=== PATIENT | female | born 1975 | race African-American/Black ===

== ENCOUNTER 2019-02-02 10:19 | Inpatient (IN) | payer OTHER ==
[2019-02-02 11:30] VITALS: BMI 36.6
[2019-02-02] MEDS ORDERED: EPINEPHrine/PF 1 MG/1 ML (1:1,000) AMPULE ONE (11:32)
[2019-02-02] MEDS ORDERED: DEXAMETHASONE SOD PHOSPHATE/PF 10 MG/ML SDV ONE (11:32)
[2019-02-02] MEDS ORDERED: MIDAZOLAM HCL 2 MG/2 ML SINGLE DOSE VIAL ONE ×7 (11:33→16:03)
[2019-02-02] MEDS ORDERED: ROPIVACAINE HCL 0.5% 30ML VIAL ONE (11:33)
[2019-02-02] MEDS ORDERED: BUPIVACAINE HCL/PF 0.5% (5MG/ML) 10 ML VIAL ONE (13:28)
[2019-02-02] MEDS ORDERED: ceFAZolin SODIUM 1 GM VIAL ONE ×2 (13:31→16:11)
[2019-02-02] MEDS ORDERED: VANCOMYCIN 1,000 MG VIAL (RESTRICTED TO ID ONLY) ONE (13:31)
[2019-02-02] MEDS ORDERED: TRANEXAMIC ACID 1000 MG/10 ML VIAL ONE ×2 (13:31→16:19)
[2019-02-02] MEDS ORDERED: CEFAZOLIN 2 GM/D5W 2 GM/50 ML ML IVPB ONE (13:36)
[2019-02-02] MEDS ORDERED: TRANEXAMIC ACID 1000 MG/10 ML VIAL IVPUSH ONE (13:36)
[2019-02-02] MEDS ORDERED: VANCOMYCIN 1 GRAM (PRE-DOCKED) 1,000 MG/250 ML BAG IVPB ONE (13:36)
--- NOTE | 2019-02-02 13:54 | PN ---
Progress Note (short form) - Note Progress Note: 43M s/p RIGHT total hip replacement POD #0. -Pain control: per anaesthesia team. -DVT PPx: -Chemical: ASA 81mg PO BID x 6 weeks. -Mechanical: JOSÉ's, SCD's. -Incentive spirometry q15 min. -PT/OT/Rehab, OOB. -WBAT RLE. -Post-op Ancef x 3 doses. -f/u post-op TOV: 8 hours max. -f/u AM labs. -Diet as tolerated. -Care per medical hospitalist team. -Discharge planning: f/u [facility] [place] [facility] 02/10/2019; call for appointment . -Will follow. Darren Alfaro MD (Orthopaedic Surgery).
--- NOTE | 2019-02-02 13:56 | OP ---
Operative Note - Note: Operative Date: 02/02/19 Pre-Operative Diagnosis: Right hip traumatic arthropathy Operation: Right total hip replacement Implants: [place]. Cup - Trident II-Tritanium, 48mm. Poly - 32mm, neutral. Stem - Accolade II, #3, 127 deg NSA. Head - 32mm diameter, -4mm length Biolox/ Delta Ceramic Post-Operative Diagnosis: Same as Pre-op Surgeon: Darren Alfaro Compensation Associate: Darius Alfaro Anesthesiologist/ORDER WORKER: Kyle Espinoza Anesthesia: Spinal Specimens Removed: Right femoral head Estimated Blood Loss (mls): 200 Fluid Volume Replaced (mls): 1,500 (Crystalloid) Operative Report Dictated: Yes
[2019-02-02] MEDS ORDERED: ePHEDrine SULFATE 50 MG/1 ML AMPULE ONE (14:19)
[2019-02-02] MEDS ORDERED: PHENYLEPHRINE HCL 10 MG/1 ML SINGLE DOSE VIAL ONE (14:19)
[2019-02-02] MEDS ORDERED: SODIUM CHLORIDE 0.9% P/F 10 ML VIAL IJ ONE (14:30)
[2019-02-02] MEDS ORDERED: ONDANSETRON 4 MG/2 ML VIAL IVPUSH PRN ×2 (16:39→17:42)
[2019-02-02] MEDS ORDERED: MAGNESIUM HYDROX 2400MG/30ML ORAL SUSPENSION 30 ML CUP PO PRN (16:39)
[2019-02-02] MEDS ORDERED: MAG HYDROX/AL HYDROX/SIMETH 30 ML UNIT-DOSE CUP PO PRN (16:39)
[2019-02-02] MEDS ORDERED: DEXAMETHASONE SOD PHOSPHATE 4 MG/1 ML VIAL ONE (16:45)
[2019-02-02] MEDS ORDERED: ONDANSETRON 4 MG/2 ML VIAL ONE ×2 (16:45→17:55)
[2019-02-02] MEDS ORDERED: LACTATED RINGERS SOLUTION 1,000 ML IV SCH (16:45)
[2019-02-02] MEDS ORDERED: HYDROmorphone HCL/PF 1 MG/ML AMP ONE (16:45)
[2019-02-02] MEDS ORDERED: PROMETHAZINE HCL 25 MG/1 ML VIAL IVPUSH PRN (17:42)
[2019-02-02] MEDS ORDERED: oxyCODONE HCL 5 MG TABLET PO PRN (17:42)
[2019-02-02] MEDS ORDERED: ACETAMINOPHEN 325 MG TABLET (FP) ONE (17:53)
[2019-02-02] MEDS: ACETAMINOPHEN 325 MG TABLET (FP) PO SCH ×2 (17:54→23:56)
[2019-02-02] MEDS: oxyCODONE HCL 5 MG TABLET PO PRN ×2 (18:54→20:13)
--- NOTE | 2019-02-02 19:27 | CONSULT ---
Consult Consult Specialty:: IM Reason for Consultation:: post-op medical management - History Source History Provided By: Patient Limitations to Obtaining History: No Limitations - Past Medical History ...LMP: 01/16/19 ...: No - Alcohol/Substance Use Hx Alcohol Use: Yes (SOCIALLY) - Smoking History Smoking history: Never smoked Have you smoked in the past 12 months: No Home Medications - Allergies Allergies/Adverse Reactions: Allergies Allergy/AdvReac Type Severity Reaction Status Date / Time No Known Drug Allergies Allergy Verified 02/02/19 11:11 - Home Medications Home Medications: Ambulatory Orders NK [No Known Home Medication] 01/24/19 Family Disease History - Family Disease History Family History: Unremarkable Review of Systems - Review of Systems Constitutional: reports: No Symptoms Eyes: reports: No Symptoms HENT: reports: No Symptoms Neck: reports: No Symptoms Cardiovascular: reports: No Symptoms Respiratory: reports: No Symptoms Gastrointestinal: reports: No Symptoms Genitourinary: reports: No Symptoms Musculoskeletal: reports: No Symptoms, Joint Pain, Joint Swelling Integumentary: reports: No Symptoms Neurological: reports: No Symptoms Endocrine: reports: No Symptoms Hematology/Lymphatic: reports: No Symptoms Psychiatric: reports: No Symptoms Pain Intensity: 6 Physical Exam Vital Signs: Vital Signs Temperature 98 F 02/02/19 18:38 Pulse Rate 74 02/02/19 18:38 Respiratory Rate 18 02/02/19 18:38 Blood Pressure 122/70 02/02/19 18:38 O2 Sat by Pulse Oximetry (%) 95 02/02/19 18:38 Constitutional: Yes: Well Nourished, No Distress Eyes: Yes: WNL HENT: Yes: WNL Neck: Yes: WNL Cardiovascular: Yes: WNL Respiratory: Yes: WNL Gastrointestinal: Yes: WNL Renal/: Yes: WNL Musculoskeletal: Yes: Joint Stiffness Extremities: Yes: WNL Edema: No Peripheral Pulses WNL: Yes Integumentary: Yes: WNL Wound/Incision: Yes: Clean/Dry, Well Approximated Neurological: Yes: WNL ...Motor Strength: WNL Psychiatric: Yes: WNL Assessment/Plan 43 yo female S/P Right total hip replacement POD #0 cont pain management. incentive spirometry. stool softeners to avoid opioid induced constipation. -GI, DVTprophylaxis. -PT/OT/OOB as tolerated -ID: Cefazolin and vanco given karoline-operatively -oral diet -assessment and plan discussed with pt and staff meds and labs reviewed AM labs ordered will f/u in AM
[2019-02-02] MEDS: CEFAZOLIN 2 GM/D5W 2 GM/50 ML ML IVPB SCH (20:14)
[2019-02-02] MEDS: ASPIRIN COATED 81 MG TABLET.EC PO SCH (22:33)
[2019-02-02] MEDS: oxyCODONE HCL 10 MG SUSTAINED ACTING TABLET PO SCH (22:33)
[2019-02-02] MEDS: SENNOSIDES/DOCUSATE COMBO (SENNA PLUS) TABLET (UD) PO SCH (22:33)
[2019-02-03] MEDS: CEFAZOLIN 2 GM/D5W 2 GM/50 ML ML IVPB SCH ×2 (02:34→09:55)
[2019-02-03] MEDS: ACETAMINOPHEN 325 MG TABLET (FP) PO SCH ×3 (06:06→17:22)
[2019-02-03] MEDS: oxyCODONE HCL 5 MG TABLET PO PRN ×3 (06:06→20:13)
[2019-02-03 08:02] LABS: HEMATOCRIT 34.6 % (32.4-45.2); HEMOGLOBIN 11.5 GM/dl (10.7-15.3); MCH 30.4 pg (25.7-33.7); MCHC 33.3 g/dl (32.0-36.0); MEAN CELL VOLUME 91.3 fl (80-96); MEAN PLT VOLUME 9.9 fl (7.5-11.1); PLATELET COUNT 242 K/MM3 (134-434); RDW 12.6 % (11.6-15.6); WHITE BLOOD COUNT 8.6 K/mm3 (4.0-10.8)
[2019-02-03 08:10] LABS: CALCIUM 8.9 mg/dl (8.5-10); CREATININE 0.6 mg/dl (0.55-1.3); POTASSIUM 4.1 mmol/L (3.5-5.1)
[2019-02-03] MEDS: PANTOPRAZOLE 40 MG TABLET (FP) PO SCH (09:47)
[2019-02-03] MEDS: SENNOSIDES/DOCUSATE COMBO (SENNA PLUS) TABLET (UD) PO SCH ×2 (09:47→22:04)
[2019-02-03] MEDS: ASPIRIN COATED 81 MG TABLET.EC PO SCH ×2 (09:47→22:04)
[2019-02-03] MEDS: oxyCODONE HCL 10 MG SUSTAINED ACTING TABLET PO SCH ×2 (09:51→22:05)
[2019-02-03] MEDS ORDERED: ACETAMINOPHEN 1000 MG/100 ML VIAL (NON FORMULARY) IVPB PRN (10:12)
--- NOTE | 2019-02-03 10:19 | PN ---
Progress Note (short form) - Note Progress Note: 43M s/p RIGHT total hip replacement POD #1. Patient seen and examined with no complaints. Patient states her pain became severe late last night but is controlled now. She has walked with PT and is tolerating her diet. She denies any CP, SOB, N/V fever or chills. Vital Signs Period Temp Pulse Resp BP Sys/Kc Pulse Ox Last 24 Hr 98 F-98.9 F 68-85 16-20 94-122/54-76 95-98 CBC, BMP 02/03/ 07:20 02/03/19 07:20 PE: A&Ox3, NAD Unlabored resp on RA Right hip dressing c/d/i with no evidence of collection or d/c B/L LE compartments soft, supple and non-tender with +2 DP pulses and 5/5 dorsi/ plantar flexion. Problem List - Problems (1) Arthritis, hip Assessment/Plan: POD#1 doing well. -Pain control: per anaesthesia team. -DVT PPx: -Chemical: ASA 81mg PO BID x 6 weeks. -Mechanical: JOSÉ's, SCD's. -Incentive spirometry q15 min. -PT/OT/Rehab, OOB. -WBAT RLE. -Post-op Ancef x 3 doses. -f/u post-op TOV: 8 hours max. -Diet as tolerated. -Care per medical hospitalist team. -Discharge planning: f/u [facility] [place] [facility] 02/10/2019; call for appointment . -Will follow. Code(s): M16.10 - UNILATERAL PRIMARY OSTEOARTHRITIS, UNSPECIFIED HIP
--- NOTE | 2019-02-03 13:26 | PN ---
Progress Note (short form) - Note Progress Note: ANESTHESIA POSTOP 43 YO FEMALE POD#1 S/P CHRIS, SPINAL ANESTHESIA WITH PNB Patient sitting in chair. Pain responds to pain medications. Tolerating PO. VSS, Afebrile Continue current care. Enoucraged IS and PT participation. No anesthetic complications
--- NOTE | 2019-02-03 15:40 | OP ---
Date of Operation: 02/02/2019 Surgeon: Darren Alfaro M.D. Hot Header Operator: Darius Alfaro M.D. Pre-Operative Diagnosis: Traumatic arthropathy right hip. Post-Operative Diagnosis: Traumatic arthropathy right hip. Surgical Procedure: Right total hip replacement via Direct Suprior approach. Findings: None. Anaesthesia: Spinal, block. Position: Left lateral decubitus. Incision: Direct superior. Estimated Blood Loss: 200cc. Intravenous Fluid: 1.5L crystalloid. Specimens: Right femoral head. Drains: None. Complications: None. Urine output: None. Bacteriology: None. Transfusions: None. Closure: #1 Vicryl, 2-0 Biosyn. Indications: The patient was indicated for a right total hip replacement in order to facilitate improved motion and mobilization, and to prevent the complications associated with a sedentary lifestyle. The patient was identified in the holding area by her family. A long discussion was held with the patient regarding the risks, benefits and alternatives of the above named procedure. Risks include but are not limited to: pain, bleeding, infection, damage to surrounding structures (including nerves, blood vessels, skin, ligaments, tendons and bone), wound complications, failure of hardware/ implants/reduction, need for further surgery, blood clots, myocardial infarction , pulmonary embolism, cerebrovascular insult, anaesthesia complications, compartment syndrome, limb loss, limp, loss of function, and . Benefits as mentioned above. Alternatives include no surgery. All questions were answered. The patient understood and agreed to the procedure. Informed consent was obtained, witnessed and verified. The patients correct operative limb - that is the right lower extremity - was marked, and the patient was taken to the operating room after being seen by the anesthesia and nursing staff. Procedure: The patient was brought into the operating room, placed on the OR table and secured with a safety strap. Consent and the operative site were again verified with the patient and nursing and anaesthesia staff. Anaesthesia, IV antibiotics, and TXA were then administered without complication. A time out was done, led by me the attending surgeon. The patient was gently turned into the left lateral decubitus position. An axillary roll was placed. A Stulberg hip positioner with well-padded bolsters was used to secure the patient in the lateral decubitus position. The down arm was placed on a well-padded arm board. The up arm was brought across the patients body and placed on 2 pillows. Foam egg crates were placed under the down knee and ankle, and bony prominences were well padded. The operative site was then prepped and draped in the standard sterile fashion. Time out was again done and the case began. Operation: A standard Direct Superior surgical approach was utilized to access the hip joint. With a #10 blade, a skin incision was taken from the posterior-superior corner of the greater trochanter in a posterior-superior direction. This was approximately 10cm in length. Electrocautery was utilized to carry the deep dissection down to the level of the gluteus eleuterio fascia. Hemostasis was assured using electrocautery (bipolar and unipolar). The gluteus eleuterio fascia was incised, and the fibers of gluteus eleuterio were in line with the trajectory of the incision. This confirmed the accuracy of our planned incision based on palpated landmarks and surface anatomy. A Edwards elevator was used to split the distal fibers of gluteus eleuterio, in line with the fibers, just proximal to their insertion into the iliotibial band. Great care was taken not to incise the iliotibial band. Gluteus eleuterio fibers were split proximally using the Edwards elevator until reaching the apex of the wound. Again, hemostasis was assured. The karoline-capsular fat pad was exposed utilizing curved handle bar retractors. The karoline-capsular fat pad was excised off the inferior border of the gluteus medius muscle belly, exposing the insertion of the hip short external rotator muscle group. The piriformis tendon was identified and freed from adhesions to the capsule using a 90-degree clamp. This tendon was then released from its insertion using electrocautery. The tendon was tagged with a # 1 Ethibond suture and tied to the inferior aspect of the proximal wound apex. The tendon, thus, served as a sling to retract and protect the sciatic nerve. With the piriformis tendon reflected away from its insertion, the hip joint capsule was visualized. Electrocautery was used to perform a capsulotomy and synovial joint fluid was aspirated. Next, the superior leaflet of the capsule was elevated using a Edwards elevator to create separation from the underlying labrum and also to create a plane for later placement of a supra-acetabular retractor. The labrum was excised using electrocautery. The hip was then gently dislocated. A standard femoral neck cut was made using an oscillating saw. A 3/4 " osteotome was delivered into the femoral head using mallet strikes. The femoral head was then removed. Anterior, inferior, and supra-acetabular retractors were placed to expose the acetabulum. The pulvinar was excised using electrocautery. Odd sized reamers were used to prepare the acetabular bone bed. Healthy blushes of bleeding were observed from the reamed cancellous bone bed. Next, a size 48mm [place] Trident cup was impacted into position, achieving excellent press-fit. A size 32mm neutral polyethylene liner was then impacted into the cup. Excellent placement of the polyethylene liner, and excellent press fit of the cup were confirmed. Next, attention was turned to femoral preparation. The anterior and supra-acetabular retractors were removed. The cut femoral neck was then exposed using the inferior acetabular retractor around the calcar, and a straight 90-degree retractor to retract gluteus medius. The box-cutter osteotome was used with a mallet to removed bone from the lateral femoral neck. An opening reamer was delivered by hand to find the femoral canal. A lateralizing reamer was used with power to lateralize the proximal entry into the canal, so as to avoid placing the stem into varus. The femoral bone bed was then prepared using broaches with gentle mallet strikes. The tibia was used as a goniometer with which to dial in approximately 5 degrees of stem anteversion. Trial components were assembled and the hip was reduced. The hip was taken through a full range of motion and proved stable throughout this range of motion, including at the extremes of positions of compromised. All trial femoral components were removed. Another 1g of IV Ancef was administered so that the bone bed would be rich with antibiotic at the time of seating of the femoral implant. A [place] Accolade II (127-degree NSA, high offset) #3 stem was then implanted using gentle mallet strikes, diligently matching the prepared degree of stem anteversion. With the stem fully seated, a 32mm diameter , -4mm length ceramic/Biolox femoral head was then selected and implanted. The hip was once again reduced, and taken through a full range of motion. Stability was once again assured. Leg length was satisfactory. The wounds were copiously irrigated, as they had been regularly throughout the case so as to keep the retracted tissues wet, and in order to flush out wound debris. The capsule was primarily repaired using #1 Vicryl sutures in simple interrupted fashion. The tagged piriformis tendon was released and tied to the posterior-lateral corner of the greater trochanter. The remaining wounds were again irrigated. Hemostasis was assured and the wound was closed primarily using #1 Vicryl sutures. A 2-0 Biosyn suture was used to perform a subcuticular wound closure. A sterile, compressive dressing was applied. The sponge and needle counts were correct at the end of the case and the attending was present and scrubbed throughout the case. The patient was then transferred into a supine position and onto the hospital bed. A standard AP-pelvis x-ray was taken, demonstrating good overall alignment with a well reduced, congruent hip. There was no evidence of subsidence, loosening, or karoline-prosthetic fracture. The patient was then was then transferred to the recovery room without incident/complications and in stable condition, having tolerated the procedure well. MD SHIRLENE Stearns/[id number] MTDD
--- NOTE | 2019-02-03 21:01 | PN ---
Progress Note, Physician - Current Medication List Current Medications: Active Medications Acetaminophen (Tylenol -) 650 mg PO Q6H [facility] Stop: 02/05/19 17:44 Last Admin: 02/03/19 17:22 Dose: 650 mg Acetaminophen (Ofirmev Injection -) 1,000 mg IVPB Q6H PRN PRN Reason: FEVER Al Hydroxide/Mg Hydroxide (Mylanta Oral Suspension -) 30 ml PO Q4H PRN PRN Reason: DYSPEPSIA Aspirin (Ecotrin -) 81 mg PO BID [facility] Last Admin: 02/03/19 09:47 Dose: 81 mg Fentanyl (Sublimaze Injection -) 50 mcg IVPUSH [id number] PRN PRN Reason: PAIN-PACU ORDER X 4 DOSES ONLY Last Admin: 02/02/19 18:14 Dose: 50 mcg Magnesium Hydroxide (Milk Of Magnesia -) 30 ml PO PRN PRN PRN Reason: CONSTIPATION Ondansetron HCl (Zofran Injection) 4 mg IVPUSH Q6H PRN PRN Reason: NAUSEA AND/OR VOMITING Oxycodone HCl (Roxicodone -) 5 mg PO Q3H PRN PRN Reason: PAIN LEVEL 1-5 Oxycodone HCl (Roxicodone -) 10 mg PO Q3H PRN PRN Reason: PAIN LEVEL 6-10 Last Admin: 02/03/19 20:13 Dose: 10 mg Oxycodone HCl (Oxycontin -) 10 mg PO BID [facility] Stop: 02/05/19 17:42 Last Admin: 02/03/19 09:51 Dose: 10 mg Pantoprazole Sodium (Protonix -) 40 mg PO DAILY [facility] Last Admin: 02/03/19 09:47 Dose: 40 mg Promethazine HCl (Phenergan Injection -) 12.5 mg IVPUSH Q6H PRN PRN Reason: NAUSEA-FOR RESCUE AFTER 15 MIN Senna/Docusate Sodium (Pericolace -) 2 tablet PO BID [facility] Last Admin: 02/03/19 09:47 Dose: 2 tablet - Objective Vital Signs: Vital Signs Temperature 98.9 F 02/03/19 14:00 Pulse Rate 92 H 02/03/19 14:00 Respiratory Rate 20 02/03/19 14:00 Blood Pressure 106/58 L 02/03/19 14:00 O2 Sat by Pulse Oximetry (%) 100 02/03/19 14:00 Constitutional: Yes: Well Nourished, No Distress, Calm Eyes: Yes: WNL HENT: Yes: WNL Neck: Yes: WNL Cardiovascular: Yes: WNL Respiratory: Yes: WNL Gastrointestinal: Yes: WNL Genitourinary: Yes: WNL Musculoskeletal: Yes: Joint Stiffness Extremities: Yes: WNL Edema: No Peripheral Pulses WNL: Yes Integumentary: Yes: WNL Wound/Incision: Yes: Clean/Dry, Well Approximated Neurological: Yes: WNL ...Motor Strength: WNL Psychiatric: Yes: WNL Labs: CBC, BMP 02/03/19 07:20 02/03/19 07:20 Assessment/Plan 43 yo female S/P Right total hip replacement POD #1 cont pain management. incentive spirometry. stool softeners to avoid opioid induced constipation. -GI, DVTprophylaxis. -PT/OT/OOB as tolerated -ID: Cefazolin and vanco given karoline-operatively -oral diet -assessment and plan discussed with pt and staff meds and labs reviewed will f/u in AM possible DC home tomorrow
[2019-02-04] MEDS: ACETAMINOPHEN 325 MG TABLET (FP) PO SCH ×4 (00:12→17:05)
[2019-02-04] MEDS: oxyCODONE HCL 5 MG TABLET PO PRN ×5 (06:24→19:50)
[2019-02-04] MEDS: ASPIRIN COATED 81 MG TABLET.EC PO SCH (09:17)
[2019-02-04] MEDS: PANTOPRAZOLE 40 MG TABLET (FP) PO SCH (09:17)
[2019-02-04] MEDS: SENNOSIDES/DOCUSATE COMBO (SENNA PLUS) TABLET (UD) PO SCH (09:21)
--- NOTE | 2019-02-04 09:57 | PN ---
Progress Note (short form) - Note Progress Note: 43M s/p RIGHT total hip replacement POD #2. Patient seen and examined c/o pain during the evening again which has resolved this morning. She is tolerating her diet and voiding. She denies any CP, SOB, N /V fever or chills. Vital Signs Temp 99.5 F 02/04/19 06:00 Pulse 103 H 02/04/19 06:00 Resp 18 02/04/19 06:00 BP 100/57 L 02/04/19 06:00 Pulse Ox 97 02/04/19 06:00 Intake & Output 02/03/19 02/03/19 02/04/19 11:59 23:59 11:59 Intake Total 500 350 Balance 500 350 Intake: Oral 500 350 Other: Voiding Method Toilet Toilet # Unmeasured Voids Void 2 A&Ox3, NAD Unlabored resp on RA Right hip dressing c/d/i with surrounding tissue intact and no evidence of tracking erythema, collection or d/c B/L LE compartments soft, supple and non-tender with +2 DP pulses and 5/5 dorsi/ plantar flexion. Problem List - Problems (1) Arthritis, hip Assessment/Plan: POD#2 doing well. Pain controlled with OxyCOntin BID and Oxycodone for breakthrough. -Pain control: per anaesthesia team. -DVT PPx: -Chemical: ASA 81mg PO BID x 6 weeks. -Mechanical: JOSÉ's, SCD's. -Incentive spirometry q15 min. -PT/OT/Rehab, OOB. -WBAT RLE. -Diet as tolerated. -Care per medical hospitalist team. -D/c home with VNS today -Discharge planning: f/u [facility] [place] [facility] 02/10/2019; call for appointment . Code(s): M16.10 - UNILATERAL PRIMARY OSTEOARTHRITIS, UNSPECIFIED HIP
[2019-02-04] MEDS: oxyCODONE HCL 10 MG SUSTAINED ACTING TABLET PO SCH (10:21)
--- NOTE | 2019-02-04 11:34 | PN ---
Progress Note, Physician Chief Complaint: right hip pain. - Current Medication List Current Medications: Active Medications Acetaminophen (Tylenol -) 650 mg PO Q6H [facility] Stop: 02/05/19 17:44 Last Admin: 02/04/19 06:24 Dose: 650 mg Acetaminophen (Ofirmev Injection -) 1,000 mg IVPB Q6H PRN PRN Reason: FEVER Al Hydroxide/Mg Hydroxide (Mylanta Oral Suspension -) 30 ml PO Q4H PRN PRN Reason: DYSPEPSIA Aspirin (Ecotrin -) 81 mg PO BID [facility] Last Admin: 02/04/19 09:17 Dose: 81 mg Magnesium Hydroxide (Milk Of Magnesia -) 30 ml PO PRN PRN PRN Reason: CONSTIPATION Ondansetron HCl (Zofran Injection) 4 mg IVPUSH Q6H PRN PRN Reason: NAUSEA AND/OR VOMITING Oxycodone HCl (Roxicodone -) 5 mg PO Q3H PRN PRN Reason: PAIN LEVEL 1-5 Oxycodone HCl (Roxicodone -) 10 mg PO Q3H PRN PRN Reason: PAIN LEVEL 6-10 Last Admin: 02/04/19 09:18 Dose: 10 mg Oxycodone HCl (Oxycontin -) 10 mg PO BID [facility] Stop: 02/05/19 17:42 Last Admin: 02/04/19 10:21 Dose: 10 mg Pantoprazole Sodium (Protonix -) 40 mg PO DAILY [facility] Last Admin: 02/04/19 09:17 Dose: 40 mg Senna/Docusate Sodium (Pericolace -) 2 tablet PO BID [facility] Last Admin: 02/04/19 09:21 Dose: 2 tablet - Objective Vital Signs: Vital Signs Temperature 99.5 F 02/04/19 06:00 Pulse Rate 103 H 02/04/19 06:00 Respiratory Rate 18 02/04/19 06:00 Blood Pressure 100/57 L 02/04/19 06:00 O2 Sat by Pulse Oximetry (%) 97 02/04/19 06:00 Constitutional: Yes: Well Nourished, No Distress Eyes: Yes: WNL HENT: Yes: WNL Neck: Yes: WNL Cardiovascular: Yes: WNL Respiratory: Yes: WNL Gastrointestinal: Yes: WNL Genitourinary: Yes: WNL Musculoskeletal: Yes: Joint Stiffness Edema: No Peripheral Pulses WNL: Yes Integumentary: Yes: WNL Wound/Incision: Yes: Clean/Dry, Well Approximated, Dressing Dry and Intact Neurological: Yes: WNL Psychiatric: Yes: WNL Labs: CBC, BMP 02/03/19 07:20 02/03/19 07:20 Assessment/Plan 43 yo female S/P Right total hip replacement POD #2 cont pain management. incentive spirometry. stool softeners to avoid opioid induced constipation. -GI, DVTprophylaxis. -PT/OT/OOB as tolerated -hypotension, tachycardia: from pain meds. encouraged to increased PO fluid intake. -ID: Cefazolin and vanco given karoline-operatively. -oral diet -assessment and plan discussed with pt and staff meds and labs reviewed plan to DC home later today
--- NOTE | 2019-02-04 11:36 | DS ---
Physical Examination Vital Signs: Vital Signs Temperature 99.5 F 02/04/19 06:00 Pulse Rate 103 H 02/04/19 06:00 Respiratory Rate 18 02/04/19 06:00 Blood Pressure 100/57 L 02/04/19 06:00 O2 Sat by Pulse Oximetry (%) 97 02/04/19 06:00 Constitutional: Yes: Well Nourished, No Distress Eyes: Yes: WNL HENT: Yes: WNL Neck: Yes: WNL Cardiovascular: Yes: WNL Respiratory: Yes: WNL Gastrointestinal: Yes: WNL ...Rectal Exam: Yes: Deferred Renal/: Yes: WNL Musculoskeletal: Yes: Joint Stiffness Extremities: Yes: WNL Edema: No Peripheral Pulses WNL: Yes Integumentary: Yes: WNL Wound/Incision: Yes: Clean/Dry, Well Approximated, Dressing Dry and Intact Neurological: Yes: WNL Psychiatric: Yes: WNL Labs: CBC, BMP 02/03/19 07:20 02/03/19 07:20 Discharge Summary Reason For Visit: RIGHT HIP ARTHROPLASTY Current Active Problems Arthritis, hip (Acute) Condition: Good - Instructions Disposition: HOME - Home Medications Comprehensive Discharge Medication List: Ambulatory Orders NK [No Known Home Medication] 01/24/19
[2019-02-04 13:54] VITALS: BP 96/58; PULSE 113; TEMP 98.3
--- NOTE | 2019-02-15 10:25 | PATH ---
Surgical Pathology Report Patient Name: OLESYA STARR Med. Rec. #: [id number] /Age/Gender: 1975 (Age: 43) / F Account: [id number] Location: [facility] MED-SURG Taken: 02/02/2019 Received: 02/02/2019 Reported: 02/15/2019 Physicians: Darren Alfaro M.D. Specimen(s) Received RIGHT FEMORAL HEAD Clinical History Traumatic arthropathy right hip Final Diagnosis FEMORAL HEAD, RIGHT, TOTAL HIP REPLACEMENT: TRAUMATIC ARTHROPATHY (CLINICAL). DEGENERATIVE JOINT DISEASE. Electronically Signed Leyla Henderson M.D. Gross Description Received in formalin labeled "right femoral head," is a 5.2 x 4.0 x 3.5 cm femoral head.The articular surface shows a defect which measures 1 cm in greatest dimension. There are areas of eburnation present. The remaining articular surfaces are elliott-yellow and focally granular. The underlying trabecular bone is yellow and hard. [employer] sections are submitted in two cassettes, following decalcification. CHANG/02/03/2019 del/02/03/2019
== END 2019-02-04 20:00 | disposition home health service (06) | DRG 301 ==
LOC: FM/S 10:19
PROVIDERS: ADMIT Orthopaedic Surgery Adult Reconstructive Orthopaedic Surgery; ATTEND Orthopaedic Surgery Adult Reconstructive Orthopaedic Surgery
PROC: 0SR903A Replacement of Right Hip Joint with Ceramic Synthetic Substitute, Uncemented, Open Approach (ICD-10-PCS; principal; 2019-02-02 14:47)
DX: M12.551 Traumatic arthropathy, right hip (principal); I95.9 Hypotension, unspecified; R00.0 Tachycardia, unspecified
CPT/HCPCS: 36415; 73502-TC-RT-FY; 80048; 84703; 85027; 88305-TC; 88311-TC; 94760; 97116-GP; 97161-GP